=== PATIENT | male | born 1965 | race Caucasian/White ===

== ENCOUNTER → 2020-03-07 14:35 | Outpatient (BNVA) | payer BC, SELFPAY | PROVIDERS: PCP Internal Medicine; Visit Provider Urology | DX: Z76.89 Persons encountering health services in other specified circumstances (principal) ==

== ENCOUNTER → 2020-11-27 14:03 | Outpatient (BNVA) | payer BC, SELFPAY | PROVIDERS: PCP Internal Medicine; Visit Provider Urology ==

== ENCOUNTER 2023-04-02 14:24 | Outpatient (AMB) | payer MEDICARE, SELFPAY ==
--- NOTE | 2023-04-02 14:22 | A.OFFVIS_ITS ---
Intake Intake Visit Reasons: 8 week follow up/Elevated PSA Intake Note: New Patient presents for initial visit for Elevated PSA PSA: 4.6 Urology Medications:none Blood Thinner: none Patient stated not taking Tamsulosin Service Attendant Required: No Accompanied by: Self / Same As Patient Allergies levofloxacin [Levaquin] Allergy (Unknown, Verified 04/05/23 12:43) Unknown Medication List - Last Reconciled 04/05/23 by TOMÁS Zimmer citalopram 40 mg PO DAILY fenofibrate 160 mg PO DAILY flash glucose sensor As directed insulin glargine (Lantus Solostar U-100 Insulin) units subcut pen needle, diabetic As directed ramipril mg PO rosuvastatin 20 mg PO BEDTIME HPI HPI Comments History of Present Illness Details Robinson is a pleasant 57-year-old male patient of Dr. Plasencia. He has a PMH of diabetes, erectile dysfunction, nocturia, and elevated PSA. In discussion with the patient today reports to be doing and feeling well. He reports having followed up with his PCP at which time his PSA was elevated in recommendations were made for urology referral for further assessment evaluation. He reports having previously followed up with Dr. Aguilera approximately 2 years ago for his history of erectile dysfunction, nephrolithiasis, and this exact issue of an elevated PSA. In review of patient's chart it appears PSAs are as follows: 05/11 4.1, 09/10 3.3, 05/12 3.6, 09/11 2.6, 09/12 2.6, 02/14 4.6 Discussed at length potential causes for elevated PSA. SHERRY offered however deferred. He does report intermittent issues with lower urinary tract symptoms however does not feel they are bothersome. He reports previously being on Flomax and found this somewhat helpful. He discusses his ongoing issues with erectile dysfunction. When asked he is insure if he has sexual desire as he feels this is variable. Discussed further workup with redraw of PSA, labs, and retroperitoneal ultrasound. Patient is agreeable. In office urinalysis results reviewed with the patient today. Discussed at length affects of diabetes on lower urinary tract symptoms, erectile dysfunction, and overall health and well- being. [facility] Medical History (Updated 04/02/23 @ 15:30 by TOMÁS Zimmer) Type II diabetes mellitus Erectile dysfunction Benign prostatic hyperplasia with lower urinary tract symptoms Nocturia Elevated PSA Review of Systems Const Reports no additional complaints Eyes Reports no additional complaints ENT Reports no additional complaints Card Reports as per [facility] Resp Reports no additional complaints GI Reports no additional complaints Reports as per HPI Musc Reports no additional complaints Neuro Reports no additional complaints Psych Reports no additional complaints Endo Reports as per HPI Physical Exam Const General: cooperative, healthy appearing, comfortable, no acute distress, well developed, alert and awake Orientation/consciousness: patient oriented x3 Limitations: no limitations HEENT Head: Yes normal to inspection, Yes normocephalic and Yes atraumatic Ears: hearing grossly normal bilaterally Eyes General: appearance normal, both eyes and all related structures Neck Neck: Yes normal visual inspection and Yes trachea midline Chest Chest palpation & inspection: normal inspection of the chest Resp Effort & Inspection: normal respiratory effort and able to speak in complete sentences Cardio Rate: regular rate GI Inspection: Yes normal to inspection General: Yes no CVA tenderness Back/Spine/Pelvis Back: no CVA tenderness Skin General skin exam: no rashes or lesions noted Neuro General: patient oriented x3 Extrem General: Yes normal to inspection Psych Appearance: grossly normal and well kempt Mental Status: mental status grossly normal Speech and movement: Normal speech and movement present and Clear speech present Affect: normal affect Attitude: cooperative Thought process: Normal thought process present Thought content: Normal thought content present Insight: Fair insight present (Psych) Judgement: Fair judgement present (Psych) Results AMB Urinalysis, Automated UA Leukoctes 0 Patric/uL Last Edit by Brianda Flores [facility] on 04/02/23 14 :37 UA Nitrite Negative Last Edit by Brianda Floresarmaan Flores [facility] on 04/02/23 14: 37 UA Urobilinogen 0.2 mg/dL Last Edit by Brinada Floresarmaan Flores [facility] on 4 14:37 UA Protein 15 mg/dL Last Edit by Brianda Floresarmaan Flores [facility] on 04/02/23 14:3 7 UA pH 5.5 Last Edit by Brianda Floresarmaan Flores [facility] on 04/02/23 14:37 UA Blood 0 Eric/uL Last Edit by Brianda Floresarmaan Flores [facility] on 04/02/23 14:37 UA Specific Brule 1.030 Last Edit by Brianda Floresarmaan Flores [facility] on 14:37 UA Ketone Negative Last Edit by Brianda Flores [facility] on 04/02/23 14:3 7 UA Bilirubin 0 mg/dL Last Edit by Brianda Flores CMA on 04/02/23 14: 37 UA Glucose 1000 mg/dL Last Edit by Brianda Flores CMA on 04/02/23 14 :37 Results Reviewed Results Reviewed: Laboratory Last Values Urine pH (Auto) 5.5 04/02/23 14:35 Specific Brule (Auto) 1.030 04/02/23 14:35 Urine Protein (Auto) 15 mg/dL 04/02/23 14:35 Glucose (UA)(Auto) 1000 mg/dL 04/02/23 14:35 Urine Ketones (Auto) Negative 04/02/23 14:35 Urine Blood (Auto) 0 Eric/uL 04/02/23 14:35 Urine Nitrite (Auto) Negative 04/02/23 14:35 Urine Bilirubin (Auto) 0 mg/dL 04/02/23 14:35 Urine Urobilinogen (Auto) 0.2 mg/dL 04/02/23 14:35 Leukocyte Esterase (Auto) 0 Patric/uL 04/02/23 14:35 Assessment & Plan Assessment & Plan (1) Nocturia: Code(s): R35.1 - Nocturia Plan In office urinalysis results reviewed with the patient today; as noted above. Discussed at length potential causes of nocturia, ED, and elevated PSA. Will obtain retroperitoneal ultrasound for further assessment evaluation. Will obtain redraw of PSA with no sex the night before, no caffeine morning of, and no heavy lifting 1-2 days prior. Will also obtain testosterone free and total for further assessment evaluation. Discussed at length importance of managing diabetes for improvement in lower urinary tract symptoms, ED, and overall health and well-being. Discussed at length lifestyle modifications to assist with nocturia as well as erectile dysfunction. SHERRY offered however deferred. Discussed further workup of sleep apnea given ED and nocturia Follow-up in 1-2 months with imaging and labs to be completed prior; or sooner with any issues, concerns, and or questions. Orders: Orders Testosterone, Free/Total 04/02/23 E11.69 - Type 2 diabetes mellitus with other specified complication, N52.1 - Erectile dysfunction due to diseases classified elsewhere AMB Urinalysis Automated 04/02/23 R33.9 - Retention of urine, unspecified PSA,Total (Free>4and<10) 04/02/23 R97.20 - Elevated prostate specific antigen [PSA] US retroperitoneal comp 04/02/23 R35.1 - Nocturia Patient Instructions: The patient had an opportunity to ask questions regarding the treatment plan. All questions were answered. Physical exam, labs, and imaging were discussed and reviewed in detail. As well as risks, benefits, and discussion of treatment choices. No major barriers to understanding were identified. The patient expressed understanding and agreement with the above treatment plan. The patient was made aware they should contact our office by phone for worsening of their current condition, the appearance of new symptoms, or with any questions or concerns. Compliance is encouraged with any medications and follow up testing that is ordered. It is a privilege to be allowed the opportunity to participate in? your urological care.? Again, if you have any questions or concerns If you have any questions or concerns please do not hesitate to contact me. The office is [phone]. This note is constructed using voice recognition software. While every effort has been made to ensure accuracy band sawmill operator errors may have been included. Yours sincerely, TOMÁS Zimmer Coding Level of Care Code Est Pt Level 3 (04848) Diagnoses Nocturia R35.1
== END 2023-04-02 15:14 | disposition home or self-care (01) ==
PROVIDERS: PCP Internal Medicine; Visit Provider Nurse Practitioner Family
DX: R35.1 Nocturia (principal)
CPT/HCPCS: 99213

== ENCOUNTER → 2023-04-02 14:24 | Outpatient (BNVA) | payer MEDICARE, SELFPAY | PROVIDERS: PCP Internal Medicine; Visit Provider Nurse Practitioner Family | DX: R35.1 Nocturia (principal) | CPT/HCPCS: 81003; 99212 ==

== ENCOUNTER 2023-04-24 13:13 | Outpatient (REF) | payer MEDICARE, SELFPAY ==
--- NOTE | ~2023-04-24 | US_ITS ---
EXAMINATION: US RETROPERITONEAL COMPLETE (RENAL) CLINICAL INFORMATION: Nocturia. COMPARISON: None available. TECHNIQUE: Real-time imaging of the kidneys and bladder. FINDINGS: RIGHT KIDNEY: 11.4 x 5 x 5 cm (SAG x AP x TRV). The kidney is normal in size, contour, and echogenicity. Renal cortical thickness is normal. No calculi. No hydronephrosis. Heterogeneous renal sinus fat. LEFT KIDNEY: 11.3 x 5.2 x 4.6 cm (SAG x AP x TRV). The kidney is normal in size, contour, and echogenicity. Renal cortical thickness is normal. No hydronephrosis. 4 mm upper pole calculus. Heterogeneous renal sinus fat. BLADDER: Well distended. Bilateral ureteral jets are demonstrated. Prevoid bladder volume is 158.3 mL. Postvoid bladder volume is 3.5 mL. PROSTATE: Prostate gland volume measures 77.8 mm. US/US retroperitoneal comp IMPRESSION: 4 mm nonobstructing left renal calculus. No hydronephrosis. Bilateral heterogeneous renal sinus fat. This is of uncertain significance. Heterogeneous enlarged prostate gland.
== END 2023-04-24 13:14 | disposition home or self-care (01) ==
LOC: HO.US 13:13
PROVIDERS: PCP Internal Medicine; Visit Provider Nurse Practitioner Family
DX: R35.1 Nocturia (principal)
CPT/HCPCS: 76770

== ENCOUNTER 2023-05-15 14:21 | Outpatient (AMB) | payer MEDICARE, SELFPAY ==
--- NOTE | 2023-05-15 14:50 | A.OFFVIS_ITS ---
Intake Intake Visit Reasons: 6w/US/labs Intake Note: Patient presents for follow up visit for Elevated PSA and lab results PSA: 3.3 Testosterone: 381 Urology Medications:none Blood Thinner: none Clerk Checker Required: No Accompanied by: Self / Same As Patient Allergies levofloxacin [Levaquin] Allergy (Unknown, Verified 05/15/23 22:01) Unknown Medication List - Last Reconciled 05/15/23 by ADELFO ZimmerP- fenofibrate 160 mg PO DAILY flash glucose sensor As directed insulin glargine (Lantus Solostar U-100 Insulin) units subcut pen needle, diabetic As directed ramipril mg PO rosuvastatin 20 mg PO BEDTIME tadalafil (Cialis) 5 mg PO DAILY 90 days tadalafil (Cialis) 20 mg PO .PRN PRN 90 days HPI HPI Comments History of Present Illness Details Robinson is a pleasant 57-year-old male patient of Dr. Plasencia. He has a PMH of diabetes, erectile dysfunction, nocturia, and elevated PSA. He presents to the office today for follow-up. Of note, patient was seen approximately 6 weeks ago at which time a retroperitoneal ultrasound, PSA, and testosterone were ordered for further assessment evaluation. These results were reviewed with the patient today. PSAs are as follows: 05/11 4.1, 09/10 3.3, 05/12 3.6, 09/11 2.6, 09/12 2.6, 02/14 4.6, 04/18 3.3 04/18--Testosterone 381, free testosteron e 5.66, SHBG 54.5 Recent retroperitoneal ultrasound results reviewed with the patient today. Bilateral kidneys with no hydronephrosis or lesions noted. 4 mm left upper pole calculi noted. The bladder is well distended. Bilateral ureteral jets are demonstrated. Pre void bladder volume is approximately 160 mL. Postvoid bladder volume is approximately 5 mL. Prostate gland volume measures approximately 78 mL. In discussion with the patient today reports to be doing and feeling well. Discussed at length enlarged prostate as well as nephrolithiasis. Patient continues to report issues with erectile dysfunction. He reports noting issues obtaining and maintaining erections. He otherwise denies any bothersome urinary issues or concerns. He reports previously being on Flomax and found this somewhat helpful however did not feel lower urinary tract symptoms were persistent enough to take a medication. Discussed at length lifestyle modifications to assist with erectile dysfunction. Discussed importance of managing diabetes for overall health and well-being. In office urinalysis results reviewed with the patient today. He otherwise offers no other issues or concerns at this time. [facility] Medical History (Updated 05/15/23 @ 20:35 by TOMÁS Zimmer) Type II diabetes mellitus Erectile dysfunction Benign prostatic hyperplasia with lower urinary tract symptoms Nocturia Elevated PSA Review of Systems Const Reports no additional complaints Eyes Reports no additional complaints ENT Reports no additional complaints Card Reports as per HPI Resp Reports no additional complaints GI Reports no additional complaints Reports as per HPI Musc Reports no additional complaints Neuro Reports no additional complaints Psych Reports no additional complaints Endo Reports as per HPI Physical Exam Const General: cooperative, healthy appearing, comfortable, no acute distress, well developed, alert and awake Orientation/consciousness: patient oriented x3 Limitations: no limitations HEENT Head: Yes normal to inspection, Yes normocephalic and Yes atraumatic Ears: hearing grossly normal bilaterally Eyes General: appearance normal, both eyes and all related structures Neck Neck: Yes normal visual inspection and Yes trachea midline Chest Chest palpation & inspection: normal inspection of the chest Resp Effort & Inspection: normal respiratory effort and able to speak in complete sentences Cardio Rate: regular rate GI Inspection: Yes normal to inspection General: Yes no CVA tenderness Back/Spine/Pelvis Back: no CVA tenderness Skin General skin exam: no rashes or lesions noted Neuro General: patient oriented x3 Extrem General: Yes normal to inspection Psych Appearance: grossly normal and well kempt Mental Status: mental status grossly normal Speech and movement: Normal speech and movement present and Clear speech present Affect: normal affect Attitude: cooperative Thought process: Normal thought process present Thought content: Normal thought content present Insight: Fair insight present (Psych) Judgement: Fair judgement present (Psych) Results Reviewed Results Reviewed: Date of Service: 04/24/23 EXAMINATION: US RETROPERITONEAL COMPLETE (RENAL) FINDINGS: RIGHT KIDNEY: 11.4 x 5 x 5 cm (SAG x AP x TRV). The kidney is normal in size, contour, and echogenicity. Renal cortical thickness is normal. No calculi. No hydronephrosis. Heterogeneous renal sinus fat. LEFT KIDNEY: 11.3 x 5.2 x 4.6 cm (SAG x AP x TRV). The kidney is normal in size, contour, and echogenicity. Renal cortical thickness is normal. No hydronephrosis. 4 mm upper pole calculus. Heterogeneous renal sinus fat. BLADDER: Well distended. Bilateral ureteral jets are demonstrated. Prevoid bladder volume is 158.3 mL. Postvoid bladder volume is 3.5 mL. PROSTATE: Prostate gland volume measures 77.8 mm. IMPRESSION: 4 mm nonobstructing left renal calculus. No hydronephrosis. Bilateral heterogeneous renal sinus fat. This is of uncertain significance. Heterogeneous enlarged prostate gland. Assessment & Plan Assessment & Plan (1) Erectile dysfunction: Code(s): N52.9 - Male erectile dysfunction, unspecified (2) Nephrolithiasis: Code(s): N20.0 - Calculus of kidney (3) Enlarged prostate: Code(s): N40.0 - Benign prostatic hyperplasia without lower urinary tract symptoms Plan In office urinalysis results reviewed with the patient today; as noted above. Recent PSA, testosterone, SHBG, and free testosterone lab values reviewed with the patient today; as noted above. Recent retroperitoneal ultrasound results reviewed with the patient today; as noted above. Discussed at length enlarged prostate as well as nephrolithiasis. Discussed affects of diabetes on erectile dysfunction as well as overall health and well-being. Discussed initiation of finasteride 5 mg daily in the setting of enlarged prostate however patient with no bothersome urinary symptoms/issues at this time. Start Cialis 5 mg daily as discussed and prescribed. P.r.n. dosing provided for an hour prior to sexual activity Discussed, educated, and stressed the importance of drinking plenty of water d aily. Follow-up in 3 months; or sooner with any issues, concerns, and or questions. Medications: New tadalafil (Cialis) [id number] [facility] [id number] Member [id number] 5 mg PO DAILY 90 tabs 3RF 90 days tadalafil (Cialis) administer approximately 30min before sexual activity; do not use more than 1 dose per 24hrs [id number] [facility] [id number] Member [id number] 20 mg PO .PRN PRN 45 tabs 0RF sexual activity 90 days Patient Instructions: The patient had an opportunity to ask questions regarding the treatment plan. All questions were answered. Physical exam, labs, and imaging were discussed and reviewed in detail. As well as risks, benefits, and discussion of treatment choices. No major barriers to understanding were identified. The patient expressed understanding and agreement with the above treatment plan. The patient was made aware they should contact our office by phone for worsening of their current condition, the appearance of new symptoms, or with any questio ns or concerns. Compliance is encouraged with any medications and follow up testing that is ordered. It is a privilege to be allowed the opportunity to participate in? your urological care.? Again, if you have any questions or concerns If you have any questions or concerns please do not hesitate to contact me. The office is [phone]. This note is constructed using voice recognition software. While every effort has been made to ensure accuracy receipt and report clerk errors may have been included. Yours sincerely, TOMÁS Zimmer Coding Level of Care Code Est Pt Level 4 (49000) Diagnoses Erectile dysfunction N52.9 Nephrolithiasis N20.0 Enlarged prostate N40.0
== END 2023-05-15 15:27 | disposition home or self-care (01) ==
PROVIDERS: PCP Internal Medicine; Visit Provider Nurse Practitioner Family
DX: N52.9 Male erectile dysfunction, unspecified (principal); N20.0 Calculus of kidney; N40.0 Benign prostatic hyperplasia without lower urinary tract symptoms
CPT/HCPCS: 99214

== ENCOUNTER → 2023-05-15 14:21 | Outpatient (BNVA) | payer MEDICARE, SELFPAY | PROVIDERS: PCP Internal Medicine; Visit Provider Nurse Practitioner Family | DX: R97.20 Elevated prostate specific antigen [PSA] (principal); E11.69 Type 2 diabetes mellitus with other specified complication; N52.1 Erectile dysfunction due to diseases classified elsewhere; R35.1 Nocturia; N40.0 Benign prostatic hyperplasia without lower urinary tract symptoms | CPT/HCPCS: 99212 ==

== ENCOUNTER 2023-08-17 14:32 | Outpatient (AMB) | payer MEDICARE, SELFPAY ==
--- NOTE | 2023-08-17 14:46 | MHC.OFFVIS ---
Intake Visit Reasons: 3m follow up Intake Note: Patient presents for follow up visit for Erectile Dyfunction Urology Medications: Tadalafil Blood Thinner: none Process Steward Required: No Accompanied by: Self / Same As Patient Allergies levofloxacin [Levaquin] Allergy (Unknown, Verified 08/17/23 16:51) Unknown Medication List - Last Reconciled 08/17/23 by Carolina Tamayo, [facility]- amlodipine 2.5 mg PO DAILY fenofibrate 160 mg PO DAILY flash glucose sensor As directed insulin glargine (Lantus Solostar U-100 Insulin) units subcut pen needle, diabetic As directed ramipril mg PO rosuvastatin 20 mg PO BEDTIME tadalafil (Cialis) 5 mg PO DAILY 90 days tadalafil (Cialis) 20 mg PO .PRN PRN 90 days HPI Comments Details: Robinson is a pleasant 57-year-old male patient of Dr. Plasencia. He has a PMH of diabetes, erectile dysfunction, nocturia, and elevated PSA. He presents to the office today for follow-up. Of note, patient was seen approximately 3 months ago at which time he was started on low-dose Cialis with p.r.n. dosing for erectile dysfunction. In discussion with the patient today he reports no improvement in obtaining or maintaining his erections. He reports since his last office visit here has suffered a stroke. He reports to be following up with cardiology as well as Neurology and is undergoing workup for potential sleep apnea. He reports a longstanding history of sleep apnea however is noncompliant with CPAP machine for many years. He discusses his frustration in the healthcare system at this time as he is unable to schedule sleep study until December. He currently denies any bothersome urinary issues or concerns. Labs are as follows: PSAs: 05/11 4.1, 09/10 3.3, 05/12 3.6, 09/11 2.6, 09/12 2.6, 02/14 4.6, 04/18 3.3 04/18 Testosterone 381, free testosterone 5.66, SHBG 54.5 Previous work up has included a retroperitoneal ultrasound results reviewed with the patient today. Bilateral kidneys with no hydronephrosis or lesions noted. 4 mm left upper pole calculi noted. The bladder is well distended. Bilateral ureteral jets are demonstrated. Pre void bladder volume is approximately 160 mL. Postvoid bladder volume is approximately 5 mL. Prostate gland volume measures approximately 78 mL. He otherwise denies any bothersome urinary issues or concerns. Discussed at length lifestyle modifications to assist with erectile dysfunction. Discussed importance of managing diabetes for overall health and well-being. He otherwise offers no other issues or concerns at this time. [facility] Medical History Type II diabetes mellitus Erectile dysfunction Benign prostatic hyperplasia with lower urinary tract symptoms Nocturia Elevated PSA Review of Systems Const Reports no additional complaints Eyes Reports no additional complaints ENT Reports no additional complaints Card Reports as per HPI Resp Reports no additional complaints GI Reports no additional complaints Reports as per HPI Musc Reports no additional complaints Neuro Reports no additional complaints Psych Reports no additional complaints Endo Reports as per HPI Physical Exam Const General: cooperative, healthy appearing, comfortable, no acute distress, well developed, alert and awake Orientation/consciousness: patient oriented x3 Limitations: no limitations HEENT Head: Yes normal to inspection, Yes normocephalic and Yes atraumatic Ears: hearing grossly normal bilaterally Eyes General: appearance normal, both eyes and all related structures Neck Neck: Yes normal visual inspection and Yes trachea midline Chest Chest palpation & inspection: normal inspection of the chest Resp Effort & Inspection: normal respiratory effort and able to speak in complete sentences Cardio Rate: regular rate GI Inspection: Yes normal to inspection General: Yes no CVA tenderness Back/Spine/Pelvis Back: no CVA tenderness Skin General skin exam: no rashes or lesions noted Neuro General: patient oriented x3 Extrem General: Yes normal to inspection Psych Appearance: grossly normal and well kempt Mental Status: mental status grossly normal Speech and movement: Normal speech and movement present and Clear speech present Affect: normal affect Attitude: cooperative Thought process: Normal thought process present Thought content: Normal thought content present Insight: Fair insight present (Psych) Judgement: Fair judgement present (Psych) Results AMB Urinalysis, Automated UA Leukoctes 0 Patric/uL Last Edit by Felix Young on 08/17/23 15:10 UA Nitrite Negative Last Edit by Felix Young on 08/17/23 15:10 UA Urobilinogen 0.2 mg/dL Last Edit by Felix Young on 08/17/23 15:10 UA Protein 15 mg/dL Last Edit by Felix Young on 08/17/23 15:10 UA pH 5.5 Last Edit by Felix Young on 08/17/23 15:10 UA Blood 0 Eric/uL Last Edit by Felix Young on 08/17/23 15:10 UA Specific [place] 1.030 Last Edit by Felix Young on 08/17/23 15:10 UA Ketone Negative Last Edit by Felix Young on 08/17/23 15:10 UA Bilirubin 0 mg/dL Last Edit by Felix Young on 08/17/23 15:10 UA Glucose 0 mg/dL Last Edit by Felix Young on 08/17/23 15:10 Results Reviewed Results Reviewed: Laboratory Last Values Urine pH (Auto) 5.5 08/17/23 15:09 Specific [place] (Auto) 1.030 08/17/23 15:09 Urine Protein (Auto) 15 mg/dL 08/17/23 15:09 Glucose (UA)(Auto) 0 mg/dL 08/17/23 15:09 Urine Ketones (Auto) Negative 08/17/23 15:09 Urine Blood (Auto) 0 Eric/uL 08/17/23 15:09 Urine Nitrite (Auto) Negative 08/17/23 15:09 Urine Bilirubin (Auto) 0 mg/dL 08/17/23 15:09 Urine Urobilinogen (Auto) 0.2 mg/dL 08/17/23 15:09 Leukocyte Esterase (Auto) 0 Patric/uL 08/17/23 15:09 Assessment & Plan Assessment & Plan (1) Sleep apnea: Code(s): G47.30 - Sleep apnea, unspecified Category: Medical (2) Enlarged prostate: Code(s): N40.0 - Benign prostatic hyperplasia without lower urinary tract symptoms Category: Medical (3) Erectile dysfunction: Code(s): N52.9 - Male erectile dysfunction, unspecified Category: Medical (4) Nephrolithiasis: Code(s): N20.0 - Calculus of kidney Category: Medical Plan In office urinalysis results reviewed with the patient today; as noted above. Discussed at length potential causes of erectile dysfunction. Discussed affects of diabetes on erectile dysfunction as well as overall health and well-being. Discussed further treatment options for erectile dysfunction. Referral sent for sleep study. Discussed affects of sleep apnea on erectile dysfunction as well as overall health and well-being. Will send prescription for TriMix therapy Patient will call office when ready to undergo penile injection therapy teaching. Orders: Orders RT home sleep study Today G47.30 - Sleep apnea, unspecified, N52.9 - Male erectile dysfunction, unspecified, R35.1 - Nocturia AMB Urinalysis Automated Today Z13.9 - Encounter for screening, unspecified Medications: Discontinued tadalafil (Cialis) [id number] [facility]33 Member [id number] Discontinued Reason: Doctor's Order 5 mg PO DAILY 90 days 90 tabs 3RF tadalafil (Cialis) administer approximately 30min before sexual activity; do not use more than 1 dose per 24hrs [id number] [facility]33 Member [id number] Discontinued Reason: Doctor's Order 20 mg PO .PRN 90 days PRN 45 tabs 0RF sexual activity Patient Instructions: The patient had an opportunity to ask questions regarding the treatment plan. All questions were answered. Physical exam, labs, and imaging were discussed and reviewed in detail. As well as risks, benefits, and discussion of treatment choices. No major barriers to understanding were identified. The patient expressed understanding and agreement with the above treatment plan. The patient was made aware they should contact our office by phone for worsening of their current condition, the appearance of new symptoms, or with any questions or concerns. Compliance is encouraged with any medications and follow up testing that is ordered. It is a privilege to be allowed the opportunity to participate in? your urological care.? Again, if you have any questions or concerns If you have any questions or concerns please do not hesitate to contact me. The office is [phone]. This note is constructed using voice recognition software. While every effort has been made to ensure accuracy balance assembler errors may have been included. Yours sincerely, TOMÁS Zimmer Coding Level of Care Code Est Pt Level 3 (14622) Diagnoses Sleep apnea G47.30 Enlarged prostate N40.0 Erectile dysfunction N52.9 Nephrolithiasis N20.0
== END 2023-08-17 15:26 | disposition home or self-care (01) ==
PROVIDERS: PCP Internal Medicine; Visit Provider Nurse Practitioner Family
DX: G47.30 Sleep apnea, unspecified (principal); N40.0 Benign prostatic hyperplasia without lower urinary tract symptoms; N52.9 Male erectile dysfunction, unspecified; N20.0 Calculus of kidney; Z13.9 Encounter for screening, unspecified
CPT/HCPCS: 99213

== ENCOUNTER → 2023-08-17 14:32 | Outpatient (BNVA) | payer MEDICARE, SELFPAY | PROVIDERS: PCP Internal Medicine; Visit Provider Nurse Practitioner Family | DX: N52.9 Male erectile dysfunction, unspecified (principal); N40.0 Benign prostatic hyperplasia without lower urinary tract symptoms; N20.0 Calculus of kidney; G47.30 Sleep apnea, unspecified | CPT/HCPCS: 81003; 99212 ==

== ENCOUNTER 2023-09-08 13:32 | Outpatient (AMB) | payer MEDICARE, SELFPAY ==
--- NOTE | 2023-09-08 13:57 | MHC.OFFVIS ---
Intake Visit Reasons: Injection teaching Intake Note: Patient presents for INJECTION TEACHING Urology Medications: NONE Blood Thinner: none ALLERGIES: NONE Entry Level Machine Operator Required: No Accompanied by: Self / Same As Patient Allergies levofloxacin [Levaquin] Allergy (Unknown, Verified 09/08/23 21:42) Unknown Medication List - Last Reconciled 09/08/23 by MUNIR Zimmer- amlodipine 2.5 mg PO DAILY aspirin (Adult Low Dose Aspirin) 81 mg PO DAILY fenofibrate 160 mg PO DAILY flash glucose sensor As directed insulin glargine (Lantus Solostar U-100 Insulin) units subcut pen needle, diabetic As directed ramipril mg PO rosuvastatin 20 mg PO BEDTIME HPI Comments Details: Robinson is a pleasant 57-year-old male patient of Dr. Plasencia. He has a PMH of diabetes, erectile dysfunction, nocturia, CVA, and elevated PSA. He presents to the office today for penile injection teaching. Penile injection performed in the office Medication received from [facility] pharmacy. Good response to TriMix initial 30 units Sterile technique used Teaching provided for identification of injection sites CPT 55674 Education provided Good response to 30 units. Suggest 40 units of TriMix initial Patient previously trialed low-dose Cialis with p.r.n. dosing of additional Cialis as well as Viagra in the past with no improvement in his erections. follow-up. Of note, patient was seen approximately 3 months ago at which time he was started on low-dose Cialis with p.r.n. dosing for erectile dysfunction. He reports to be following up with cardiology as well as Neurology and is undergoing workup for potential sleep apnea. He reports a longstanding history of sleep apnea however is noncompliant with CPAP machine for many years. He discusses his frustration in the healthcare system at this time as he is unable to schedule sleep study until December. He currently denies any bothersome urinary issues or concerns. Labs are as follows: PSAs: 05/11 4.1, 09/10 3.3, 05/12 3.6, 09/11 2.6, 09/12 2.6, 02/14 4.6, 04/18 3.3 04/18 Testosterone 381, free testosterone 5.66, SHBG 54.5 Previous work up has included a retroperitoneal ultrasound results reviewed with the patient today. Bilateral kidneys with no hydronephrosis or lesions noted. 4 mm left upper pole calculi noted. The bladder is well distended. Bilateral ureteral jets are demonstrated. Pre void bladder volume is approximately 160 mL. Postvoid bladder volume is approximately 5 mL. Prostate gland volume measures approximately 78 mL. He otherwise denies any bothersome urinary issues or concerns. Discussed at length lifestyle modifications to assist with erectile dysfunction. Discussed importance of managing diabetes for overall health and well-being. He otherwise offers no other issues or concerns at this time. [facility] Medical History Type II diabetes mellitus Erectile dysfunction Benign prostatic hyperplasia with lower urinary tract symptoms Nocturia Elevated PSA Review of Systems Const Reports no additional complaints Eyes Reports no additional complaints ENT Reports no additional complaints Card Reports as per HPI Resp Reports no additional complaints GI Reports no additional complaints Reports as per HPI Musc Reports no additional complaints Neuro Reports no additional complaints Psych Reports no additional complaints Endo Reports as per HPI Physical Exam Const General: cooperative, healthy appearing, comfortable, no acute distress, well developed, alert and awake Nutritional Appearance: average body habitus Orientation/consciousness: patient oriented x3 Limitations: no limitations HEENT Head: Yes normal to inspection, Yes normocephalic and Yes atraumatic Ears: hearing grossly normal bilaterally Eyes General: appearance normal, both eyes and all related structures Neck Neck: Yes normal visual inspection and Yes trachea midline Chest Chest palpation & inspection: normal inspection of the chest Resp Effort & Inspection: normal respiratory effort and able to speak in complete sentences Cardio Rate: regular rate GI Inspection: Yes normal to inspection General: Yes no CVA tenderness Male General Exam: Yes normal external exam Penis: normal penis and circumcised Meatus: meatus normal Scrotum: scrotum normal Testes: Testes normal Back/Spine/Pelvis Back: no CVA tenderness Skin General skin exam: no rashes or lesions noted Neuro General: patient oriented x3 Extrem General: Yes normal to inspection Psych Appearance: grossly normal and well kempt Mental Status: mental status grossly normal Speech and movement: Normal speech and movement present and Clear speech present Affect: normal affect Attitude: cooperative Thought process: Normal thought process present Thought content: Normal thought content present Insight: Fair insight present (Psych) Judgement: Fair judgement present (Psych) Results AMB Urinalysis, Automated UA Leukoctes 0 Patric/uL Last Edit by Tello Molina CCMStacy on 09/08/23 14:11 UA Nitrite Negative Last Edit by Tello Molina [facility] on 09/08/23 14:11 UA Urobilinogen 0.2 mg/dL Last Edit by Tello Molina [facility] on 09/08/23 14:11 UA Protein 0 mg/dL Last Edit by Tello Molina [facility] on 09/08/23 14:11 UA pH 6.0 Last Edit by Tello Molina [facility] on 09/08/23 14:11 UA Blood 0 Eric/uL Last Edit by Tello Molina [facility] on 09/08/23 14:11 UA Specific [place] 1.030 Last Edit by Tello Molina [facility] on 09/08/23 14:11 UA Ketone Negative Last Edit by Tello Molina [facility] on 09/08/23 14:11 UA Bilirubin 0 mg/dL Last Edit by Tello Molina [facility] on 09/08/23 14:11 UA Glucose 0 mg/dL Last Edit by Tello Molina [facility] on 09/08/23 14:11 Results Reviewed Results Reviewed: Laboratory Last Values Urine pH (Auto) 6.0 09/08/23 14:10 Specific [place] (Auto) 1.030 09/08/23 14:10 Urine Protein (Auto) 0 mg/dL 09/08/23 14:10 Glucose (UA)(Auto) 0 mg/dL 09/08/23 14:10 Urine Ketones (Auto) Negative 09/08/23 14:10 Urine Blood (Auto) 0 Eric/uL 09/08/23 14:10 Urine Nitrite (Auto) Negative 09/08/23 14:10 Urine Bilirubin (Auto) 0 mg/dL 09/08/23 14:10 Urine Urobilinogen (Auto) 0.2 mg/dL 09/08/23 14:10 Leukocyte Esterase (Auto) 0 Patric/uL 09/08/23 14:10 Assessment & Plan Assessment & Plan (1) Erectile dysfunction: Code(s): N52.9 - Male erectile dysfunction, unspecified Category: Medical (2) Enlarged prostate: Code(s): N40.0 - Benign prostatic hyperplasia without lower urinary tract symptoms Category: Medical (3) Elevated PSA: Code(s): R97.20 - Elevated prostate specific antigen [PSA] Category: Medical (4) Sleep apnea: Code(s): G47.30 - Sleep apnea, unspecified Category: Medical Plan In office urinalysis results reviewed with the patient today; as noted above. Penile injection teaching was provided; as noted above; information provided Discussed at length potential causes of erectile dysfunction. Discussed affects of diabetes on erectile dysfunction as well as overall health and well-being. Discussed affects of sleep apnea on erectile dysfunction as well as overall health and well-being. Will obtain PSA in 3 months. Follow-up in 3 months with lab to be completed prior; or sooner with any issues, concerns, and or questions. Orders: Orders AMB Urinalysis Automated Today Z13.9 - Encounter for screening, unspecified Prostate Specific Antigen 3 Months R97.20 - Elevated prostate specific antigen [PSA] Patient Instructions: The patient had an opportunity to ask questions regarding the treatment plan. All questions were answered. Physical exam, labs, and imaging were discussed and reviewed in detail. As well as risks, benefits, and discussion of treatment choices. No major barriers to understanding were identified. The patient expressed understanding and agreement with the above treatment plan. The patient was made aware they should contact our office by phone for worsening of their current condition, the appearance of new symptoms, or with any questions or concerns. Compliance is encouraged with any medications and follow up testing that is ordered. It is a privilege to be allowed the opportunity to participate in? your urological care.? Again, if you have any questions or concerns If you have any questions or concerns please do not hesitate to contact me. The office is [phone]. This note is constructed using voice recognition software. While every effort has been made to ensure accuracy boat hand errors may have been included. Yours sincerely, TOMÁS Zimmer Coding Level of Care Code Est Pt Level 4 (96951) Diagnoses Erectile dysfunction N52.9 Enlarged prostate N40.0 Elevated PSA R97.20 Sleep apnea G47.30
== END 2023-09-08 15:51 | disposition home or self-care (01) ==
PROVIDERS: PCP Internal Medicine; Visit Provider Nurse Practitioner Family
DX: N52.9 Male erectile dysfunction, unspecified (principal); N40.0 Benign prostatic hyperplasia without lower urinary tract symptoms; R97.20 Elevated prostate specific antigen [PSA]; G47.30 Sleep apnea, unspecified; Z13.9 Encounter for screening, unspecified
CPT/HCPCS: 99214

== ENCOUNTER → 2023-09-08 13:32 | Outpatient (BNVA) | payer MEDICARE, SELFPAY | PROVIDERS: PCP Internal Medicine; Visit Provider Nurse Practitioner Family | DX: N52.9 Male erectile dysfunction, unspecified (principal); N40.0 Benign prostatic hyperplasia without lower urinary tract symptoms; R97.20 Elevated prostate specific antigen [PSA]; G47.30 Sleep apnea, unspecified | CPT/HCPCS: 81003; 99212 ==

== ENCOUNTER 2023-12-10 14:34 | Outpatient (AMB) | payer MEDICARE, SELFPAY ==
--- NOTE | 2023-12-10 14:36 | A.OFFVIS_ITS ---
Intake Visit Reasons: 3m follow up Intake Note: Patient presents today for follow up on: elevated psa, enlarged prostate, and erectile dysfunction Urology Medications: trimex injection Blood Thinner: aspirin ALLERGIES: NONE Urogynecology Physician Required: No Accompanied by: Self / Same As Patient Allergies levofloxacin [Levaquin] Allergy (Unknown, Verified 12/10/23 15:06) Unknown Medication List - Last Reconciled 12/10/23 by TOMÁS Zimmer amlodipine 2.5 mg PO DAILY aspirin (Adult Low Dose Aspirin) 81 mg PO DAILY fenofibrate 160 mg PO DAILY flash glucose sensor As directed insulin glargine (Lantus Solostar U-100 Insulin) units subcut pen needle, diabetic As directed ramipril mg PO rosuvastatin 20 mg PO BEDTIME HPI Comments Details: Robinson is a pleasant 58-year-old male patient of Dr. Plasencia. He has a PMH of diabetes, erectile dysfunction, nocturia, CVA, and elevated PSA. He presents to the office today for a follow-up of his erectile dysfunction. Of note, patient was seen approximately 3 months ago at which time in office penile injection teaching was performed. In discussion with the patient today he reports unfortunately has been unsuccessful in obtaining erections with TriMix. We discussed further treatment options to include penile prosthesis. Risks and benefits of these interventions were discussed. We also discussed importance of obtaining PSA as discussed during last office visit. He has previously trialed and failed oral therapies with Viagra as well as Cialis. Labs are as follows: PSAs: 05/11 4.1, 09/10 3.3, 05/12 3.6, 09/11 2.6, 09/12 2.6, 02/14 4.6, 04/18 3.3 04/18 Testosterone 381, free testosterone 5.66, SHBG 54.5 Previous work up has included a retroperitoneal ultrasound results reviewed with the patient today. Bilateral kidneys with no hydronephrosis or lesions noted. 4 mm left upper pole calculi noted. The bladder is well distended. Bilateral ureteral jets are demonstrated. Pre void bladder volume is approximately 160 mL. Postvoid bladder volume is approximately 5 mL. Prostate gland volume measures approximately 78 mL. He otherwise denies any bothersome urinary issues or concerns. Discussed at length lifestyle modifications to assist with erectile dysfunction. Discussed importance of managing diabetes for overall health and well-being. He discusses wanting to attempt injection therapy again prior to potential penile prosthesis. He otherwise offers no other issues or concerns at this time. COUNT INCLUDES THE [facility] Medical History Type II diabetes mellitus Erectile dysfunction Benign prostatic hyperplasia with lower urinary tract symptoms Nocturia Elevated PSA Review of Systems Const Reports no additional complaints Eyes Reports no additional complaints ENT Reports no additional complaints Card Reports as per HPI Resp Reports no additional complaints GI Reports no additional complaints Reports as per HPI Musc Reports no additional complaints Neuro Reports no additional complaints Psych Reports no additional complaints Endo Reports as per HPI Physical Exam Const General: cooperative, healthy appearing, comfortable, no acute distress, well developed, alert and awake Nutritional Appearance: average body habitus Orientation/consciousness: patient oriented x3 Limitations: no limitations HEENT Head: Yes normal to inspection, Yes normocephalic and Yes atraumatic Ears: hearing grossly normal bilaterally Eyes General: appearance normal, both eyes and all related structures Neck Neck: Yes normal visual inspection and Yes trachea midline Chest Chest palpation & inspection: normal inspection of the chest Resp Effort & Inspection: normal respiratory effort and able to speak in complete sentences Cardio Rate: regular rate GI Inspection: Yes normal to inspection General: Yes no CVA tenderness Male General Exam: Yes normal external exam Penis: normal penis and circumcised Meatus: meatus normal Scrotum: scrotum normal Testes: Testes normal Back/Spine/Pelvis Back: no CVA tenderness Skin General skin exam: no rashes or lesions noted Neuro General: patient oriented x3 Extrem General: Yes normal to inspection Psych Appearance: grossly normal and well kempt Mental Status: mental status grossly normal Speech and movement: Normal speech and movement present and Clear speech present Affect: normal affect Attitude: cooperative Thought process: Normal thought process present Thought content: Normal thought content present Insight: Fair insight present (Psych) Judgement: Fair judgement present (Psych) Results AMB Urinalysis, Automated UA Leukoctes 0 Patric/uL Last Edit by Brandyce Bress on 12/10/23 14:55 UA Nitrite Last Edit by Brandyce Bress on 12/10/23 14:55 UA Urobilinogen 0.2 mg/dL Last Edit by Brandyce Bress on 12/10/23 14:55 UA Protein 15 mg/dL Last Edit by Brandyce Bress on 12/10/23 14:55 UA pH 8.0 Last Edit by Brandyce Bress on 12/10/23 14:55 UA Blood 80 Eric/uL Last Edit by Brandyce Bress on 12/10/23 14:55 UA Specific [place] 1.010 Last Edit by Little Questyce Bress on 12/10/23 14:55 UA Ketone Last Edit by Little Questyce Bremadelyn on 12/10/23 14:55 UA Bilirubin 0 mg/dL Last Edit by Little Questyce Bress on 12/10/23 14:55 UA Glucose 0 mg/dL Last Edit by Little Questycqian Viewpointsmadelyn on 12/10/23 14:55 Results Reviewed Results Reviewed: Laboratory Last Values Urine pH (Auto) 8.0 12/10/23 14:39 Specific [place] (Auto) 1.010 12/10/23 14:39 Urine Protein (Auto) 15 mg/dL 12/10/23 14:39 Glucose (UA)(Auto) 0 mg/dL 12/10/23 14:39 Urine Blood (Auto) 80 Eric/uL 12/10/23 14:39 Urine Bilirubin (Auto) 0 mg/dL 12/10/23 14:39 Urine Urobilinogen (Auto) 0.2 mg/dL 12/10/23 14:39 Leukocyte Esterase (Auto) 0 Patric/uL 12/10/23 14:39 Assessment & Plan Assessment & Plan (1) Erectile dysfunction: Code(s): N52.9 - Male erectile dysfunction, unspecified Category: Medical (2) Enlarged prostate: Code(s): N40.0 - Benign prostatic hyperplasia without lower urinary tract symptoms Category: Medical (3) Elevated PSA: Code(s): R97.20 - Elevated prostate specific antigen [PSA] Category: Medical (4) Sleep apnea: Code(s): G47.30 - Sleep apnea, unspecified Category: Medical Plan In office urinalysis results reviewed with the patient today; as noted above. Discussed at length potential causes of erectile dysfunction. Discussed affects of diabetes on erectile dysfunction as well as overall health and well-being. We discussed further treatment options for erectile dysfunction and risks and benefits of these interventions. Discussed affects of sleep apnea on erectile dysfunction as well as overall health and well-being. Obtain PSA and A1c as ordered. Will recent TriMix prescription. Patient will call office to schedule follow-up as he is unsure if he would like to continue with TriMix verses potential penile prosthesis. Discussed importance of obtaining labs as discussed and ordered. Orders: Orders AMB Urinalysis Automated Today Z13.9 - Encounter for screening, unspecified Hemoglobin A1c Today E11.9 - Type 2 diabetes mellitus without complications Prostate Specific Antigen Today N40.0 - Benign prostatic hyperplasia without lower urinary tract symptoms, R97.20 - Elevated prostate specific antigen [PSA] Patient Instructions: The patient had an opportunity to ask questions regarding the treatment plan. All questions were answered. Physical exam, labs, and imaging were discussed and reviewed in detail. As well as risks, benefits, and discussion of treatment choices. No major barriers to understanding were identified. The patient expressed understanding and agreement with the above treatment plan. The patient was made aware they should contact our office by phone for worsening of their current condition, the appearance of new symptoms, or with any questions or concerns. Compliance is encouraged with any medications and follow up testing that is ordered. It is a privilege to be allowed the opportunity to participate in? your urological care.? Again, if you have any questions or concerns If you have any questions or concerns please do not hesitate to contact me. The office is [phone]. This note is constructed using voice recognition software. While every effort has been made to ensure accuracy digital marketing strategist errors may have been included. Yours sincerely, TOMÁS Zimmer Coding Level of Care Code Est Pt Level 3 (94679) Complex EM visit Add On G2211 Diagnoses Erectile dysfunction N52.9 Enlarged prostate N40.0 Elevated PSA R97.20 Sleep apnea G47.30
== END 2023-12-10 15:05 | disposition home or self-care (01) ==
PROVIDERS: PCP Internal Medicine; Visit Provider Nurse Practitioner Family
DX: N52.9 Male erectile dysfunction, unspecified (principal); N40.0 Benign prostatic hyperplasia without lower urinary tract symptoms; R97.20 Elevated prostate specific antigen [PSA]; G47.30 Sleep apnea, unspecified; Z13.9 Encounter for screening, unspecified
CPT/HCPCS: 99213; G2211

== ENCOUNTER → 2023-12-10 14:34 | Outpatient (BNVA) | payer MEDICARE, SELFPAY | PROVIDERS: PCP Internal Medicine; Visit Provider Nurse Practitioner Family | DX: R97.20 Elevated prostate specific antigen [PSA] (principal); N52.9 Male erectile dysfunction, unspecified; N40.1 Benign prostatic hyperplasia with lower urinary tract symptoms; R35.1 Nocturia; G47.30 Sleep apnea, unspecified; E11.9 Type 2 diabetes mellitus without complications; Z79.899 Other long term (current) drug therapy | CPT/HCPCS: 81003; 99212 ==

== ENCOUNTER 2024-01-28 15:21 | Day surgery (SDC) | payer MEDICARE, SELFPAY ==
[2024-01-28 15:43] VITALS: BP 143/94; PULSE 80; RESP 16; TEMP 36.8; O2SAT 96; BMI 26.4
[2024-01-28 16:07] LABS: Glucose, Whole Blood 112 mg/dL (60-115)
--- NOTE | 2024-01-28 16:07 | HO.ANESPROP2 ---
HPI - Anesthesia Eval Consult details Narrative: 58 yo male patient for Cystoscopy, Left ureteroscopy, retro, laser, stent Left ureter PMFSH Active Problems Active Problems: All Active Problems Sleep apnea (Acute). Uses CPAP machine Enlarged prostate (Acute) Nephrolithiasis (Acute) Nocturia (Acute) Erectile dysfunction (Acute) Elevated PSA (Acute) Benign prostatic hyperplasia with lower urinary tract symptoms (Acute) CVA. On plavix Past Medical History Medical History CVA (cerebral vascular accident) Cardiology follow-up encounter YENNIFER (obstructive sleep apnea) HTN (hypertension) Type II diabetes mellitus Erectile dysfunction Benign prostatic hyperplasia with lower urinary tract symptoms Nocturia Elevated PSA Family History Family history of problems with anesthesia: No Surgical History Surgical History H/O lithotripsy Previous back surgery H/O knee surgery History of appendectomy History of Problems with Anesthesia: No Social History Social History Are you a primary post acute care registered nurse to a significant other at home: No Do you presently have visiting nurse or other home services: No Patient Tobacco Use Status: Never used Tobacco Use of substances other than those prescribed or required for medical reasons: No Have you been hit, kicked, punched, or otherwise hurt by someone within the past year? If so, by whom?: No Are you DNR?: No Advance Directives: No Advance Directives Information Provided: No Advance Directives on File: No Recently lost weight without trying: No How much weight loss: Not applicable Eating poorly because of decreased appetite: No Nutrition screen score: 0 Nutrition Risks: No Nutritional Risk Poor oral hygiene: No Meds Allergies Allergy/AdvReac Type Severity Reaction Status Date / Time levofloxacin [Levaquin] Allergy Severe Swelling Verified 01/28/24 15:37 Home Medications ?Medication ?Instructions ?Recorded ?Confirmed ?Last Taken ?Type fenofibrate 160 mg tablet 160 mg PO DAILY 03/07/20 01/28/24 Unknown History flash glucose sensor #1 ea 03/07/20 12/10/23 Unknown History pen needle, diabetic 31 gauge x #50 ea 03/07/20 12/10/23 Unknown History 05/08 ramipril 10 mg capsule 10 mg PO DAILY 03/07/20 01/28/24 01/27/24 History rosuvastatin 20 mg tablet 20 mg PO BEDTIME 03/07/20 01/28/24 Unknown History insulin glargine 100 unit/mL (3 34 unit subcut BEDTIME 12/23/21 01/28/24 01/27/24 History mL) subcutaneous pen (Lantus Solostar U-100 Insulin) amlodipine 2.5 mg tablet 2.5 mg PO DAILY 08/17/23 01/28/24 01/27/24 History aspirin 81 mg tablet,delayed 81 mg PO DAILY 09/08/23 01/28/24 01/27/24 History release (Adult Low Dose Aspirin) Humalog Pen See Rx Instructions .Route .COMPLEX 01/28/24 01/28/24 01/27/24 History clopidogrel 75 mg tablet 75 mg PO DAILY 01/28/24 01/28/24 01/27/24 History oxycodone 5 mg tablet 5 mg PO BID PRN Pain 01/28/24 01/28/24 01/28/24 02:00 History 5 mg Exam Height,Weight and Vital Signs: Height 5 ft 8.5 in Weight 80.014 kg Last Vital Signs Temp 98.3 F 01/28/24 15:43 Pulse 80 01/28/24 15:43 Resp 16 01/28/24 15:43 BP 143/94 H 01/28/24 15:43 Pulse Ox 96 01/28/24 15:43 O2 Del Method Room Air 01/28/24 15:43 Pertinent Lab Results Pertinent Lab Results: Laboratory Tests 01/28/24 15:59 POC Glucose 112 Airway Mallampati Class: III TM Dist: >3cm Neck ROM: Full Loose/Missing/Broken Teeth: Yes (1 extraction back) Heart: RRR Lungs: CTAB Assessment and Plan Assessment Anesthesia Assessment: Anesthesia Plan Discussed and Chart Reviewed Final Anesthetic Review Family History of Problems with Anesthesia: No History of Problems with Anesthesia: No NPO: Yes ASA Class: III and Emergency Final Preanesthetic Review: No Changes in Pt Med Stat, Meds/Allgs Chart Reviewed, Consent Obtained/Reviewed and Anes Risks/Benef Reviewed Patient Risk: Intermediate Procedure Risk: Low Assessment/Block/Sedation in SS: Assess/Block/Sedation-SS Anesthetic Plan Anesthetic Plan: GA Disposition: Standard PACU
--- NOTE | 2024-01-28 16:15 | PC.NURSE ---
Dr. Aguilera made aware patient took Plavix yesterday, okay to proceed with surgery. Anesthesia Dr. Quispe aware.
--- NOTE | 2024-01-28 16:34 | MHC.SHP ---
Pre-Procedural Eval Section A - 24 Hr Update-Section A only Date of Service: 01/28/24 The patient is an INPATIENT: No Changes since office visit: No Cold of Flu in the past 2 weeks, No New Medical Problems, No Changes in Medication and No Patient answered all questions The patient has been examined within 24 hours of the surgical procedure. The History & Physical has been completed within 30 days and I have reviewed it.: No Section B - Complete if H&P > 30 days Chief Complaint: Calculus of ureter Details of Present Illness: Known small stone on left side seen in April. Presents with persistent nausea and vomiting with pain on the left side consistent with prior stone passage. Given upcoming recommend intervention today with ureteroscopy laser lithotripsy and stent placement. Relevant Family History (Specify if Yes): No Relevant Social History: None Present Medications: see Short Stay Collaborative assessment Medical History: No relevant PMH History of Previous Operations: No relevant previous surgery Allergies: Allergies Allergy/AdvReac Type Severity Reaction Status Date / Time levofloxacin [Levaquin] Allergy Severe Swelling Verified 01/28/24 15:37 Review of Systems Sugical H&P ROS: Negative: Constitution, Cardiovascular, Respiratory, Neurological, Psychiatric, Hem-Onc, Allergic/Immunologic, Gastrointestinal, Genitourinary, Musculoskeletal, Integumentary, Endocrine and Eyes/Ears/Nose/Throat Exam Surgical H&P Exam: Normal: HEENT, Normal: Heart, Normal: Lungs, Normal: Extremities, Normal: Abdomen, Normal: Skin and Normal: Neurological Plan Diagnosis/Plan: Unchanged (Cystoscopy, left retrograde, left ureteroscopy with laser lithotripsy stent placement) I have reviewed the history and physical and performed a pertinent physical examination on my patient. No changes have occurred unless specified. Time Spent With Patient Time: Total time managing care of this patient today ____ minutes.
[2024-01-28] MEDS: Lactated Ringers 1,000 ML 100 ML IVCONT (16:41)
--- NOTE | 2024-01-28 17:21 | P.OP_ITS ---
Operative Note Operative Note Date of Service: 01/28/24 Narrative: PreOperative Diagnosis: Left ureteric stone pain Post Operative Diagnosis: Left ureteric stone Procedure: - cystoscopy, left retrograde - left dilatation of ureteric orifice under fluoroscopy - left ureteroscopy, stone basketing - left stent placement Surgeon: Dr Ronn Aguilera Anesthesia: General Indications for procedure: Three day history of progressive left flank pain. Prior history stones. Thinks the pain was consistent with previous stone Procedure: After informed consent was verified the patient was brought to the operating room and placed in a supine position. Anesthesia was administered per protocol. The patient was placed in a modified dorsal lithotomy position and prepped and draped in a sterile fashion. Safety pause time-out and side of surgery were confirmed. Images were available for review. Antibiotic administration confirmed. A 22 Salvadorean cystoscope was inserted per urethra. The urethra was without abnormality. The bladder was normal in its entirety. Both ureteric orifices were seen in normal position. The left ureteric orifice was cannulated and a retrograde examination was performed. Filling defect at junction between distal and mid 3rd . A Sensor guidewire was placed up to the level of the renal pelvis under fluoroscopy. The rigid cystoscope was removed. A Hemant dilator was placed over the Sensor guidewire and used to dilate the ureteric orifice under fluoroscopy. The dilator was removed. The semi rigid ureteral scope was placed alongside the Sensor guidewire. Small fragments of stones were noted in distal ureter. As we moved up there was 2 largest stone clamps. Appears the stone had been broken into small pieces during dilatation. Stone fragments were removed from the ureter using a 2.4 Salvadorean basket. Once the fragments were removed a decision was made to place a ureteric stent. Based on the height of the patient a 6 Fr x 26 stent was used. The string was removed from the stent prior to placement. The rigid cystoscope was backloaded over the wire and advanced into the bladder. A 6 Salvadorean by 26 cm double-J stent was placed into the renal pelvis and bladder under a combination of fluoroscopy and direct visualization. Proximal positioning of the stent was confirmed using fluoroscopy. The bladder was emptied. The patient tolerated the procedure well and was extubated in the operating room. They were transferred in stable condition to the recovery area. Pathology: stones Drains: Double J stent as described above
[2024-01-28 17:25] VITALS: BP 119/79; PULSE 88; RESP 12; TEMP 36.9; O2SAT 95
[2024-01-28 17:30] VITALS: BP 117/78; PULSE 85; RESP 12; O2SAT 95
[2024-01-28 17:35] VITALS: BP 123/81; PULSE 89; RESP 16; O2SAT 94
[2024-01-28 17:40] VITALS: BP 128/82; PULSE 77; RESP 16; TEMP 36.9; O2SAT 94
[2024-01-28] MEDS: Ketorolac Tromethamine 15 MG/ML VIAL IVPUSH (17:40)
[2024-01-28] MEDS: Phenazopyridine HCL 100 MG TABLET PO (17:41)
== END 2024-01-28 17:58 | disposition home or self-care (01) ==
PROVIDERS: PCP Internal Medicine; Visit Provider Urology
PROC: (CPT 52352; principal; 2024-01-28 17:00)
DX: N20.1 Calculus of ureter (principal); Z87.442 Personal history of urinary calculi; N40.1 Benign prostatic hyperplasia with lower urinary tract symptoms; R35.0 Frequency of micturition; E11.9 Type 2 diabetes mellitus without complications; G47.33 Obstructive sleep apnea (adult) (pediatric); Z99.89 Dependence on other enabling machines and devices; Z86.73 Personal history of transient ischemic attack (TIA), and cerebral infarction without residual deficits; Z79.02 Long term (current) use of antithrombotics/antiplatelets; Z79.4 Long term (current) use of insulin; Z79.82 Long term (current) use of aspirin; Z79.899 Other long term (current) drug therapy; Z88.1 Allergy status to other antibiotic agents; Z98.890 Other specified postprocedural states
CPT/HCPCS: 52352; 52332; 82365; 82947; 88300; C1758; C1769; C2617; J0131; J0736; J1100; J1885; J2003; J2405; J2704; J2765; J3010; Q9967

== ENCOUNTER → 2024-01-28 15:21 | Outpatient (BNV) | payer MEDICARE, SELFPAY | PROVIDERS: PCP Internal Medicine; Visit Provider Urology | DX: N20.1 Calculus of ureter (principal) | CPT/HCPCS: 52332; 52352; 74420 ==

== ENCOUNTER 2024-02-04 14:20 | Outpatient (AMB) | payer MEDICARE, SELFPAY ==
--- NOTE | 2024-02-04 14:21 | A.OFFVIS_ITS ---
Intake Visit Reasons: Stent removal Intake Note: Patient is present for STENT REMOVAL Urology Medication:TAMSULOSIN Antibiotic Allergy:LEVOFLOXACIN Blood Thinner:ASPIRIN Lot:[id number] Exp:12/27/26 Insurance Claims Representative Required: No Allergies levofloxacin [Levaquin] Allergy (Severe, Verified 02/04/24 14:23) Swelling HPI Comments Details: Carlos is a pleasant male. He is a patient of Dr. Plasencia. He is seen for the following urologic conditions - nephrolithiasis - erectile dysfunction in setting of diabetes Here for cystoscopy and stent removal Recent admission for distal left ureteric stone Composition pending UA at this point appears to show infection. Five days Bactrim provided due to diabetes background Nephrolithiasis Left distal ureteric stone Intervention - 01/16 left ureteroscopy Composition pending Erectile dysfunction Prior evaluation Poor response to oral therapy escalation Previous trial of TriMix Prosthetic has been discussed Investigations- 04/18 T [address] [facility] Medical History CVA (cerebral vascular accident) Cardiology follow-up encounter YENNIFER (obstructive sleep apnea) HTN (hypertension) Type II diabetes mellitus Erectile dysfunction Benign prostatic hyperplasia with lower urinary tract symptoms Nocturia Elevated PSA Surgical History H/O lithotripsy Previous back surgery H/O knee surgery History of appendectomy Social History Are you a primary clinical care coordinator to a significant other at home: No Do you presently have visiting nurse or other home services: No Patient Tobacco Use Status: Never used Tobacco Review of Systems Const Denies chills and Denies fever(s) Card Reports no additional complaints and Denies syncope Resp Denies cough GI Denies abdominal pain and Denies heartburn Reports as per HPI and Denies change in libido Neuro Denies syncope Psych Denies change in libido Endo Denies change in libido Physical Exam Const General: cooperative, healthy appearing, comfortable and no acute distress Orientation/consciousness: patient oriented x3 HEENT Face and sinus: Yes normal facial exam Mouth: moist mucous membranes Neck Neck: Yes normal visual inspection, Yes full ROM and Yes trachea midline Chest Chest palpation & inspection: normal inspection of the chest Resp Effort & Inspection: normal respiratory effort, able to speak in complete sentences and no respiratory distress GI Inspection: Yes normal to inspection Back/Spine/Pelvis Cervical Spine: normal cervical lordosis Thoracic/Lumbar Spine: thoracic and lumbar spine normal to inspection Skin General skin exam: no rashes or lesions noted Neuro General: patient oriented x3, gait normal, tone normal and moves all extremities Extrem General: Yes normal to inspection and Yes capillary refill normal Office Procedures Cystoscopy Consent Discussed risk and benefit or proposed procedure with the patient. Information consent for procedure given to the patient. Discussed technical aspects, risks, benefits and alternatives in full. Addressed all of the patient's questions and concerns regarding the procedure. The patient demonstrated knowledge and understanding. They wish to proceed with this procedure. Preparation The patient was prepped in the usual manner. A physical biochemist was present and in the room. Genitalia was prepped with betadine solution in a sterile manner. Lidocaine Jelly 2% was placed into the urethra and 16Fr flexible Olympus cystoscope was inserted into the meatus after adequate lubrication. Procedure A well lubricated 16 Zimbabwean cystoscope was placed No abnormality noted of urethra during placement Indwelling stent seen within bladder emerging from left ureteric orifices The stent was grasped with a 3 prong grasper and removed without difficulty The patient tolerated the procedure well Significant hematuria [id number] with stent removal DISPOSABLE SCOPE URO-G FLEXIBLE SCOPE Procedure code (CPT) selection complete Office Meds lidocaine HCl 2 % mucosal jelly in applicator Performing Provider: Ronn Aguilera MD [facility] Administered by: Ronn Aguilera MD on 02/04/24 15:16 Dose Route Admin Location Dispensed Lot Number Expiration Date [facility] Production Packager 10 mL intra-urethral 10 mL Results AMB Urinalysis, Automated UA Leukoctes 500 Patric/uL Last Edit by SHIRA Gao on 02/04/24 14:30 UA Nitrite Positive Last Edit by SHIRA Gao on 02/04/24 14:30 UA Urobilinogen 8 mg/dL Last Edit by SHIRA Gao on 02/04/24 14:30 UA Protein 300 mg/dL Last Edit by SHIRA Gao on 02/04/24 14:30 UA pH 6.5 Last Edit by SHIRA Gao on 02/04/24 14:30 UA Blood 200 Eric/uL Last Edit by SHIRA Gao on 02/04/24 14:30 UA Specific [place] 1.020 Last Edit by SHIRA Gao on 02/04/24 14: 30 UA Ketone Positive Last Edit by SHIRA Gao on 02/04/24 14:30 UA Bilirubin 2 mg/dL Last Edit by SHIRA Gao on 02/04/24 14:30 UA Glucose 250 mg/dL Last Edit by SHIRA Gao on 02/04/24 14:30 Results Reviewed Results Reviewed: Laboratory Last Values Urine pH (Auto) 6.5 02/04/24 14:29 Specific [place] (Auto) 1.020 02/04/24 14:29 Urine Protein (Auto) 300 mg/dL 02/04/24 14:29 Glucose (UA)(Auto) 250 mg/dL 02/04/24 14:29 Urine Ketones (Auto) Positive 02/04/24 14:29 Urine Blood (Auto) 200 Eric/uL 02/04/24 14:29 Urine Nitrite (Auto) Positive 02/04/24 14:29 Urine Bilirubin (Auto) 2 mg/dL 02/04/24 14:29 Urine Urobilinogen (Auto) 8 mg/dL 02/04/24 14:29 Leukocyte Esterase (Auto) 500 Patric/uL 02/04/24 14:29 Assessment & Plan Assessment & Plan (1) UTI (urinary tract infection), bacterial: Code(s): N39.0 - Urinary tract infection, site not specified; A49.9 - Bacterial infection, unspecified Category: Medical (2) Nephrolithiasis: Code(s): N20.0 - Calculus of kidney Category: Medical Plan Stent removed Antibiotics for 5 days Three-month follow-up imaging Orders: Orders AMB Urinalysis Automated Today Z13.9 - Encounter for screening, unspecified US renal BI 3 Months N20.0 - Calculus of kidney AMB Cystoscopy Today N20.0 - Calculus of kidney Medications: New lidocaine HCl 2% 10 mL intra-urethral ONCE 10 mL 0RF N20.0 - Calculus of kidney sulfamethoxazole-trimethoprim 800-160 mg (Bactrim DS) 1 tab PO BID 5 days 10 tabs 0RF A49.9 - Bacterial infection, unspecified, N39.0 - Urinary tract infection, site not specified Patient Instructions: Imaging studies, laboratory and physical exam results were discussed and reviewed in detail. No major barriers to patient understanding were identified. An opportunity to ask questions regarding the treatment plan was provided. All questions were answered. The patient expressed understanding and agreement with the above treatment plan. The patient is aware they should contact our office by phone for worsening of their current condition or the appearance of new urologic symptoms. Compliance is encouraged with any medications and followup testing that is ordered. It is a privilege to participate in the urologic care of your patient. If you have any questions or concerns regarding treatment for the above conditions, or other urologic issues, please do not hesitate to contact me. The office telephone contact is [phone]. This note is constructed using voice recognition software. While every effort has been made to ensure accuracy button cutter errors may have been included. Yours sincerely, Dr Ronn Aguilera MD, [facility] - Urology Providers of Expert, Compassionate Care for the Genitourinary System Coding Level of Care Code Est Pt Level 4 (86366) Diagnoses UTI (urinary tract infection), bacterial N39.0; A49.9 Nephrolithiasis N20.0 CPT Codes Cystoscopy - CPT: [id number] with stent removal ([id number])
== END 2024-02-04 15:15 | disposition home or self-care (01) ==
PROVIDERS: PCP Internal Medicine; Visit Provider Urology
DX: N39.0 Urinary tract infection, site not specified (principal); A49.9 Bacterial infection, unspecified; N20.0 Calculus of kidney; Z96.0 Presence of urogenital implants; Z13.9 Encounter for screening, unspecified
CPT/HCPCS: 52310; 99214

== ENCOUNTER → 2024-02-04 14:20 | Outpatient (BNVA) | payer MEDICARE, SELFPAY | PROVIDERS: PCP Internal Medicine; Visit Provider Urology | DX: N39.0 Urinary tract infection, site not specified (principal); N20.0 Calculus of kidney; A49.9 Bacterial infection, unspecified | CPT/HCPCS: 52310; 81003; 99212 ==

== ENCOUNTER 2024-04-27 12:54 | Outpatient (REF) | payer MEDICARE, SELFPAY ==
--- NOTE | ~2024-04-27 | US_ITS ---
CLINICAL HISTORY: N20.0 - Calculus of kidney Renal ultrasound Comparison: None Findings: Right kidney 11.6 x 6 x 6.1 cm. Left kidney 12.2 x 6.4 x 4.1 cm. Intact renal contour and cortical medullary differentiation. No stones or hydronephrosis on either side. Impression: Negative renal ultrasound. This document has been electronically signed by: Cade Baez MD on 04/29/2024 08:06:34
--- OUTSIDE RECORDS SUMMARY | 2024-04-27 15:13 | XMS_ITS | Clinical Summary ---
Author Organization [facility] Address [address] [place] [address] Care Team Providers Care Button Pusher Name Role Phone Unavailable Primary Care Provider Unavailabl e Allergies Active Allergy Reactions Criticality Noted Date Comments Levofloxacin 04/15/2017 Medications Medication Sig Dispensed Refills Start Date End Date Status fluticasone (FLONASE) 50 MCG/ACT nasal sprayIndications:PND (post-nasal drip) spray/apply 1 spray in each nostril daily. 16 g 12 04/15/2017 Active Social History Tobacco Use Types Packs/Day Years Used Date Smoking Tobacco: Never Assessed Sex and Gender Information Value Date Recorded Sex Assigned at Not on file Gender Identity Not on file Sexual Orientation Not on file Job Start Date Occupation Industry Not on file Not on file Not on file Last Filed Vital Signs Vital Sign Reading Time Taken Comments Blood Pressure 122/80 04/15/2017 12:03 PM EST Pulse 70 04/15/2017 12:03 PM EST Temperature 36.1 ??C (96.9 ??F) 04/15/2017 12:[address] Respiratory Rate 16 04/15/2017 12:03 PM EST Oxygen Saturation 98% 04/15/2017 12:03 PM EST Inhaled Oxygen Concentration - - Weight 83.9 kg (185 lb) 04/15/2017 12:03 PM EST Height 175.3 cm (5' 9 ) 04/15/2017 12:03 PM EST Body Mass Index 27.32 04/15/2017 12:03 PM EST Plan of Treatment Health Maintenance Due Date Last Done Comments Hepatitis B Vaccines (1 of 3 - 3-dose series) 1964 Hepatitis C Screening 1964 COVID-19 Vaccine (#1) 04/12/1965 Depression Screening 1976 Preventative Health Evaluation 1982 DTap / Tdap / Td (1 - Tdap) 10/11/1983 Colon Cancer Screening (Colonoscopy) 2009 Shingrix-Zoster Vaccine (1 of 2) 2014 Influenza Vaccine (#1) 2023 Pneumococcal Vaccine Aged Out No long er eligible based on patient's age to complete this topic RSV Ped < 20 months Aged Out No longe r eligible based on patient's age to complete this topic
--- OUTSIDE RECORDS SUMMARY | 2024-04-27 15:13 | XMS_ITS | Clinical Summary ---
Author Organization [facility] Address [address] [address] Phone Care Team Providers Care Tile Decorator Name Role Phone Panda Plasencia MD Primary Care Provider Allergies Active Allergy Reactions Criticality Noted Date Comments Glipizide Swelling 02/25/2021 Levofloxacin 04/15/2017 Medications aspirin (ST SERA) 81 MG EC tablet Take 1 tablet by mouth 1 (one) time each day Active Farxiga 5 MG tablet Take 1 tablet by mouth 1 (one) time each day 02/18/2021 Active Basaglar KwikPen 100 UNIT/ML injection 01/03/2021 Active omeprazole (PriLOSEC) [address] capsule Take 1 capsule by mouth 1 (one) time each day 02/03/2021 Active ramipril (ALTACE) 10 MG capsule Take 2 capsules by mouth 1 (one) time each day 09/17/2010 Active rosuvastatin (CRESTOR) 5 MG tablet Take 5 mg by mouth 1 (one) time each day Active amLODIPine (NORVASC) 2.5 MG tablet Take 2.5 mg by mouth 1 (one) time each day Active docusate sodium (COLACE) 100 MG capsule Take 100 mg by mouth 1 (one) time each day Active insulin lispro protamine-insul in lispro (HumaLOG 75-25) (75-25) 100 UNIT/ML suspension Inject under the skin Active Active Problems Problem Noted Date Diagnosed Date Benign essential hypertension 02/25/2021 Hypertensive heart disease without heart failure 02/25/2021 Renal disorder due to type 2 diabetes mellitus 0 02/25/2021 Renal stone 02/25/2021 Hypertension 02/25/2021 Stage 3a chronic kidney disease 02/25/2021 Family History Medical History Relation Comments Diabetes Father Heart disease Father AR 2002/cabg age 61 Hypertension Father Relation Status Comments Father Alive Mother Alive Social History Tobacco Use Types Packs/Day Years Used Date Smoking Tobacco: Never Smokeless Tobacco: Never Tobacco Cessation:Counseling Given: Not Answered Alcohol Use Standard Drinks/Week Comments Not Currently 0 (1 standard drink = 0.6 oz pure alcohol) Alcoholic Drinks/day: Occasional social drink Sex and Gender Information Value Date Recorded Sex Assigned at Not on file Legal Sex Male 5:05 PM EST Gender Identity Not on file Sexual Orientation Not on file Last Filed Vital Signs Vital Sign Reading Time Taken Comments Blood Pressure 138/80 10/09/2022 2:33 PM EDT Pulse 85 10/09/2022 2:33 PM EDT Temperature - - Respiratory Rate - - Oxygen Saturation 98% 02/25/2021 1:57 PM EST Inhaled Oxygen Concentration - - Weight 80.4 kg (177 lb 3.2 oz) 10/09/2022 2:33 P M EDT Height - - Body Mass Index - - Plan of Treatment Health Maintenance Due Date Last Done Comments Pneumococcal Vaccine: Pediat rics (0 to 5 Years) and At-Risk Patients (6 to 64 Years) (1 of 2 - PCV) 1970 Hepatitis B Vaccine (1 of 3 - 19+ 3-dose series) 10/10 Colorectal Cancer Screening: Annual FOBT 2013 Colorectal Cancer Screening: Colonoscopy 2013 Colorectal Cancer Screening: Sigmoidoscopy 2013 Diabetes: Ophthalmology Exam 03/25/2020 Diabetes: Pedal Pulse Checked 03/25/2020 Diabetes: Sensory Foot Exam 03/25/2020 Diabetes: Visual Foot Exam 03/25/2020 Diabetes: Hemoglobin A1C 07/03/2021 04/05/2021 Influenza Vaccine (#1) 2023 Procedures Procedure Name Priority Date/Time Associated Diagnosis Comments EXT RESULT ENTRY Routine 04/05/2021 from Last 3 Months or Most Recently Relevant to Health Maintenance Results * (ABNORMAL) EXT RESULT ENTRY (04/05/2021) Sodium 142 137 - 147 Potassium 4.3 3.4 - 5.5 Chloride 103 99 - 108 Bicarbonate (CO2) 31(A) 22 - 30 mmol/L BUN 15 4 - 21 mg/dL Creatinine 1.20 0.60 - 1.30 mg/dL BUN/Creatinine Ratio 12 Calcium 10.0 8.7 - 10.7 mg/dL eGFR Non-Afr Indonesian >60 eGFR >60 ALT (SGPT) 31 U/L AST (SGOT) 29 U/L Hemoglobin A1C 6.7(A) 4.0 - 6.0 04/05/2021 Historical Provider LAB BLOOD ORDERABLES Julieta l Result from Last 3 Months or Most Recently Relevant to Health Maintenance Insurance [facility] Care Teams Tile Decorator Relationship Specialty Start Date End Date Panda Plasencia MD [address] [place] [address] PCP - General 03/05/20
--- OUTSIDE RECORDS SUMMARY | 2024-04-27 15:13 | XMS_ITS | Clinical Summary ---
Author Organization [facility] [employer] [facility] it Address [address] [place] [address] Care Team Providers Care Electronics Research Engineer Name Role Phone Panda Plasencia MD Primary Care Provider [phone] Surgical History Surgery Date Site/Laterality Comments APPENDECTOMY PROCEDURE: NC APPENDECTOMY Social History Tobacco Use Types Packs/Day Years Used Date Smoking Tobacco: Never Smokeless Tobacco: Never Sex and Gender Information Value Date Recorded Sex Assigned at Not on file Legal Sex Male 2:09 AM EST Gender Identity Not on file Sexual Orientation Not on file Obstetrics History Last Filed Vital Signs Vital Sign Reading Time Taken Comments Blood Pressure - - Pulse - - Temperature - - Respiratory Rate - - Oxygen Saturation - - Inhaled Oxygen Concentration - - Weight 83.9 kg (185 lb) 04/15/2017 12:03 PM EST Height 175.3 cm (5' 9 ) 04/15/2017 12:03 PM EST Body Mass Index 27.32 04/15/2017 12:03 PM EST Plan of Treatment Health Maintenance Due Date Last Done Comments DTaP,Tdap,and Td Vaccines (1 - Tdap) 10/11/1983 Hepatitis B Vaccines (1 of 3 - 19+ 3-dose series) 10/11/1983 Pneumococcal Vaccine: 50+ Ye ars (1 of 1 - PCV) 2014 Zoster Vaccines (1 of 2) 2014 Cholesterol Screening (Lipid Panel) 01/26/2022 Colorectal Cancer Screening: Colonoscopy 01/26/2022 Depression Screening 01/26/2022 HIV Screening 01/26/2022 Hepatitis C Screening 01/26/2022 Social Influencers of Health Screening 01/26/2022 COVID-19 Vaccine ( - 2023-2 5 season) 2023 Influenza Vaccine (#1) 2023 RSV Immunization Patients 60 + Years Old (1 - 1-dose 75+ series) 10/11/2039 HIB Vaccines Aged Out No longer eligi ble based on patient's age to complete this topic HPV Vaccines Aged Out No longer eligi ble based on patient's age to complete this topic Hepatitis A Vaccines Aged Out No long er eligible based on patient's age to complete this topic IPV Vaccines Aged Out No longer eligi ble based on patient's age to complete this topic MMR Vaccines Aged Out No longer eligi ble based on patient's age to complete this topic Meningococcal ACWY Vaccine Aged Out N o longer eligible based on patient's age to complete this topic Meningococcal B Vacine Aged Out No lo nger eligible based on patient's age to complete this topic Pneumococcal Vaccine: Pediat rics (0 to 5 Years) and At-Risk Patients (6 to 64 Years) Aged Out No longer eligible b ased on patient's age to complete this topic RSV Immunization Patients Un katlyn 20 months Aged Out No longer eligible b ased on patient's age to complete this topic Varicella Vaccines Aged Out No longer eligible based on patient's age to complete this topic Care Teams Electronics Research Engineer Relationship Specialty Start Date End Date Panda Plasencia MD PCP - General Internal Medicine 08/24/14
--- OUTSIDE RECORDS SUMMARY | 2024-04-27 15:14 | XMS_ITS | Data Portability ---
Author Organization [facility] [employer] [facility] [id number] Address [address] [place] [address] Assessment No assessment recorded. Plan of Treatment Reminders Order Date Submit Date Provider Last Modified By Organization Details Last Modified Time Details Appointments None record ed. Lab None record ed. Referral None record ed. Procedures None record ed. Surgeries None record ed. Imaging None record ed. Medication Orders None record ed. Patient TargetsNo targets recorded. Patient InstructionsNo instructions recorded. Reason for Referral None Reported. Procedures Surgical History Date Name Laterality Status Provider Name and Address Organization Details Recorded Time OC-UDS Rapid 5 or 10 panel Template completed [facility] 04/03/2022 13:58:46 Imaging Results None recorded. Procedure Notes None recorded. Medical Equipment None Reported. Medications Name Sig Start Date Stop Date Status Note LastModified by Organization Details LastModified Time nystatin 100,000 unit/mL oral suspension SWISH WITH 5ML BY MOUTH 3 TO 4 TIMES A DAY AND SPIT OUT active Not Available Not Available No t Available ramipril 10 mg capsule TAKE 2 CAPSULES BY MOUTH EVERY DAY active Not Available Not Available No t Available rosuvastatin 20 mg tablet TAKE 1 TABLET BY MOUTH EVERY DAY active Not Available Not Available No t Available Lantus Solostar U-100 Insulin 100 unit/mL (3 mL) subcutaneous pen INJECT 34 UNITS (PLUS 2 UNITS TO PRIME PEN WITH EACH DOSE) DAILY OR DIRECTED active Not Available Not Available No t Available Farxiga 5 mg tablet TAKE 1 TABLET BY MOUTH EVERY DAY active Not Available Not Available No t Available FreeStyle Kesha 14 Day Sensor kit TO MONITOR BLOOD GLUCOSE TO CHANGE SENSOR EVERY 14 DAYS 90 DAYS active Not Available Not Available No t Available Vitals None Recorded Social History None recorded. Functional Status None recorded. Mental Status None recorded. Family History Nothing Reported. Medical History No medical history recorded. Past Encounters Encounter ID Performer Location Encounter Start Date Encounter Closed Date Diagnosis/Indication Diagnosis SNOMED-CT Code Diagnosis ICD10 Code Diagnosis Note [id number] [facility] [address] [place] [address] 03/02/2018 13:10:31 03/02/2018 13:33:29 [id number] HERLINDA GHOSH MD [id number] [facility] [address] [place] [address] 04/03/2022 12:22:30 04/03/2022 13:59:38 History and physical examination, occupation [id number] Z02.1 Health Concerns Section Related Observation LastModified by Organization Detai ls LastModified Time None Recorded Concern Status LastModified by Organization Details LastModified Time None Recorded Advance Directives Directive None Recorded Payers Encounter Date Sequence Insurance Name Policy Number Policy Holloway Covered Member ID Holloway Member ID Guarantor Name 04/03/2022 [employer]CREEN [employer] [address]
== END 2024-04-27 12:55 | disposition home or self-care (01) ==
LOC: HO.US 12:54
PROVIDERS: PCP Internal Medicine; Visit Provider Urology
DX: N20.0 Calculus of kidney (principal)
CPT/HCPCS: 76775

== ENCOUNTER → 2024-04-27 12:56 | Outpatient (BNV) | payer MEDICARE, SELFPAY | PROVIDERS: PCP Internal Medicine; Visit Provider Radiology Diagnostic Radiology | DX: N20.0 Calculus of kidney (principal) | CPT/HCPCS: 76775 ==